=== PATIENT | female | born 1950 | race Caucasian/White ===

== ENCOUNTER 2020-02-02 09:32 | Outpatient (CLI) | payer OTHER, SELFPAY | END 2020-02-02 14:38 | disposition home or self-care (01) | LOC: PHYS 09:33 | PROVIDERS: PCP Family Medicine; Referring Provider Family Medicine; Visit Provider Family Medicine | DX: R26.9 Unspecified abnormalities of gait and mobility (principal) | CPT/HCPCS: 95886; 95909 ==

== ENCOUNTER → 2023-12-14 15:45 | Outpatient (CLI) | payer OTHER, SELFPAY ==
--- NOTE | 2023-12-14 15:48 | DI.MRI.S_ITS ---
PROCEDURE: MR LUMBAR SPINE WO CON INDICATIONS: GAIT DIFFICULTY,SCOLIOSIS DUE TO OSTEOPOROSIS TECHNIQUE: Noncontrast sagittal T1 spin echo and T2 fast echo, sagittal STIR, and T2 fast spin echo through the lumbar spine. In cases with scoliosis, additional coronal T2 fast spin echo may be performed. COMPARISON: None. FINDINGS: Image quality: Excellent. Alignment and Curvature: There is normal bony alignment. Bone Marrow: Marrow is of normal overall signal. No acute vertebral body compression fractures. Spinal Cord: Conus medullaris terminates at the L1 level. Visualized cord demonstrates normal signal and size. Paraspinous Soft Tissues: No paravertebral masses. T12-L1: Normal appearance. L1-L2: Normal appearance. L2-L3: Normal appearance. L3-L4: Mild disc bulge and arthropathy. Mild central stenosis. Mild left and no right foraminal stenosis L4-L5: Mild disc bulge and arthropathy. Mild central stenosis. Mild right and no left foraminal stenosis L5-S1: Mild disc bulge. Arthropathy. Moderate right and no left foraminal stenosis IMPRESSION: Mild multilevel degenerative changes associated with moderate right foraminal stenosis at L5-S1 Approved by: Omar Coombs M.D. on 12/14/2023 at 18:54
== END ==
PROVIDERS: PCP Family Medicine; Referring Provider Family Medicine; Visit Provider Family Medicine
DX: M47.816 Spondylosis without myelopathy or radiculopathy, lumbar region; M47.817 Spondylosis without myelopathy or radiculopathy, lumbosacral region; M51.36 Other intervertebral disc degeneration, lumbar region; M51.37 Other intervertebral disc degeneration, lumbosacral region; M48.061 Spinal stenosis, lumbar region without neurogenic claudication; M48.07 Spinal stenosis, lumbosacral region; R26.9 Unspecified abnormalities of gait and mobility; M21.371 Foot drop, right foot; M79.604 Pain in right leg; G62.9 Polyneuropathy, unspecified; M21.70 Unequal limb length (acquired), unspecified site
CPT/HCPCS: 72148

== ENCOUNTER → 2024-03-08 13:03 | Outpatient (CLI) | payer OTHER, SELFPAY ==
--- NOTE | 2024-03-08 13:06 | DI.MRI.S_ITS ---
PROCEDURE: MR HEAD/BRAIN WO CON INDICATIONS: SPASTIC GAIT TECHNIQUE: Non-contrast axial T1 spin echo, axial T2 fast spin echo, sagittal and axial FLAIR, coronal T2 fast spin echo, axial gradient echo, axial diffusion and ADC through the brain. COMPARISON: None. FINDINGS: Image quality: Diagnostic, with note made of motion artifact. CSF spaces: Ventricles appear symmetric in size and shape. Basal cisterns are patent. No extra-axial fluid collections. Brain: No intracranial bleeds or mass effects. There is cerebral volume loss for age. There are periventricular and deep white matter chronic small vessel ischemic changes. Brainstem appears normal. Diffusion-weighted images show no acute infarct. No chronic ischemic insults. Normal intravascular flow voids are present. Skull and face: Calvarial bone marrow is normal in signal. Orbits are normal. Sinuses: Sinuses and mastoids are clear. IMPRESSION: Noncontrast brain MRI within normal limits for age, without a cause of the patient's presenting symptoms. No findings of acute or subacute infarction can be seen. No prior territorial infarct can be seen. To the limits of this noncontrast study, no findings of intracranial masses or mass effect can be seen. Dictated by: Esteban Mccoy M.D. on 03/08/2024 at 14:14 Approved by: Esteban Mccoy M.D. on 03/08/2024 at 14:15
== END ==
LOC: MRI 13:04
PROVIDERS: PCP Family Medicine
DX: R26.1 Paralytic gait (principal)
CPT/HCPCS: 70551